=== PATIENT | female | born 1995 | race African-American/Black ===

== ENCOUNTER 2017-01-07 14:17 | Emergency (ER) | payer OTHER ==
[~2017-01-07] VITALS: Ht 165.1 cm; Wt 56.7 kg
[~2017-01-07 14:17] MED LIST: BENADRYL25 MG PO; CIPROFLOXACIN500 M1 PO; DIFLUCAN150 MG PO; LIDOCAINE 22 %/30 GM MM; NOHOMEMEDICATIONS; NORCO 5-325 TA1 EACH PO; PREDNISONE 20 M20 M1 PO; PREDNISONE 5 MG5 M1 PO; PREDNISONE50 MG PO; PROAIR HFA8.5 GM IH; PROVENTIL HFA6.7 G1 INH
[2017-01-07 14:33] LABS: URINE BILIRUBIN NEGATIVE (Negative); URINE BLOOD NEGATIVE (Negative); URINE COLOR YELLOW; URINE GLUCOSE-RANDOM* NEGATIVE (Negative); URINE KETONES NEGATIVE (Negative); URINE NITRITE NEGATIVE (Negative); URINE PROTEIN (DIPSTICK) NEGATIVE (Negative); URINE UROBILINOGEN 0.2 E.U./dl (0.2-1.0)
[2017-01-07] MEDS ORDERED: FLAGYL500 MG PO (15:30)
[2017-01-07 15:43] VITALS: BP 109/65
[2017-01-08 17:11] LABS: CHLAMYDIA TRACHOMATIS-PCR Negative (Negative); NEISSERIA GONORRHEA-PCR Negative (Negative)
== END 2017-01-07 15:45 | disposition home or self-care (01) ==
LOC: ER 14:17
PROVIDERS: Physician Assistant
DX: N76.0 Acute vaginitis (principal); N94.10 Unspecified dyspareunia; J45.909 Unspecified asthma, uncomplicated

== ENCOUNTER 2017-02-11 16:37 | Emergency (ER) | payer OTHER ==
[~2017-02-11] VITALS: Ht 165.1 cm; Wt 56.2 kg
[~2017-02-11 16:37] MED LIST changes: +FLAGYL500 MG PO
[2017-02-11] MEDS ORDERED: NAPROSYN500 MG PO (20:03)
[2017-02-11] MEDS ORDERED: HYDROCODONE-AP1 EAC6 PO (20:03)
[2017-02-11 20:15] VITALS: BP 111/57
== END 2017-02-11 20:15 | disposition home or self-care (01) ==
LOC: ER 16:37
DX: S01.81XA Laceration without foreign body of other part of head, initial encounter (principal); J45.909 Unspecified asthma, uncomplicated; X99.1XXA Assault by knife, initial encounter; Y93.89 Activity, other specified; Y92.481 Parking lot as the place of occurrence of the external cause; Y99.8 Other external cause status